=== PATIENT | male | born 1990 | race Asian ===

== ENCOUNTER 2019-08-18 20:01 | Emergency (ER) | payer OTHER ==
[~2019-08-18] VITALS: Ht 177.8 cm; Wt 67.1 kg
[2019-08-18 21:15] VITALS: BP 130/88; TEMP 98.4
== END 2019-08-18 21:15 | disposition home or self-care (01) ==
LOC: ED 20:01
DX: J06.9 Acute upper respiratory infection, unspecified (principal); F17.210 Nicotine dependence, cigarettes, uncomplicated
CPT/HCPCS: 87502; 87651; 99283

== ENCOUNTER 2020-07-14 13:30 | Emergency (ER) | payer OTHER ==
[2020-07-14 19:24] LABS: POTASSIUM 3.2 mmol/L (3.6-5.2)
[2020-07-14 19:52] LABS: PLATELET COUNT 220 K/uL (142-355)
== END 2020-07-14 15:30 | disposition home or self-care (01) ==
LOC: ED 13:30
PROVIDERS: Hospitalist
DX: K52.89 Other specified noninfective gastroenteritis and colitis (principal); E86.0 Dehydration; R19.7 Diarrhea, unspecified; R11.2 Nausea with vomiting, unspecified
CPT/HCPCS: 80053; 81000; 82150; 83690; 85027; 96360; 96375; 99284

== ENCOUNTER 2021-05-18 13:12 | Emergency (ER) | payer OTHER ==
[~2021-05-18] VITALS: Ht 177.8 cm; Wt 72.6 kg
[2021-05-18 13:58] VITALS: TEMP 97.9
[2021-05-18 15:48] LABS: PLATELET COUNT 186 K/uL (142-355)
[2021-05-18 15:53] LABS: POTASSIUM 3.8 mmol/L (3.6-5.2)
[2021-05-18 16:13] VITALS: BP 136/76
== END 2021-05-18 16:14 | disposition home or self-care (01) ==
LOC: ED 13:12
PROVIDERS: Hospitalist
DX: B34.9 Viral infection, unspecified (principal); R19.7 Diarrhea, unspecified; R11.2 Nausea with vomiting, unspecified
CPT/HCPCS: 80048; 85027; 99283

== ENCOUNTER 2021-05-20 20:03 | Emergency (ER) | payer OTHER ==
[~2021-05-20] VITALS: Ht 177.8 cm; Wt 72.6 kg
[2021-05-20 21:33] LABS: PLATELET COUNT 143 K/uL (142-355)
[2021-05-20 21:34] LABS: POTASSIUM 3.2 mmol/L (3.6-5.2)
[2021-05-20 23:40] VITALS: BP 124/76; TEMP 97.3
== END 2021-05-20 23:40 | disposition home or self-care (01) ==
LOC: ED 20:03
PROVIDERS: Family Medicine
DX: K52.89 Other specified noninfective gastroenteritis and colitis (principal); J40 Bronchitis, not specified as acute or chronic; F17.210 Nicotine dependence, cigarettes, uncomplicated; Z20.822 Contact with and (suspected) exposure to COVID-19
CPT/HCPCS: 80053; 81000; 82150; 83690; 85027; 87635; 96372; 99283; J1885; J2405; U0003